=== PATIENT | female | born 1940 | race Caucasian/White ===

== ENCOUNTER → 2017-01-11 12:17 | Outpatient (CLI) | payer MEDICARE ==
[2014-09-18 16:41] VITALS: BMI 29.7
[~2017-01-11 12:17] MED LIST: ELIQUIS5 MG PO; K-TAB10 MEQ PO; LASIX20 MG; PRILOSEC20 MG PO; SYNTHROID88 MCG PO; TOPROL XL25 MG PO; ZOLOFT100 MG PO
== END | disposition home or self-care (01) ==
LOC: D.RT 12:17
DX: R06.00 Dyspnea, unspecified (principal)